=== PATIENT | male | born 1970 | race Caucasian/White ===

== ENCOUNTER 2021-05-08 00:03 | Inpatient (IN) | payer BC ==
[~2021-05-08] VITALS: Ht 180.3 cm; Wt 110.7 kg
[2021-05-08] VITALS (9 sets, daily range): BP systolic 127–172; BP diastolic 75–106
[2021-05-08 00:44] LABS: BASO # 0.1 10*3/uL (0.0-0.1); BASO % 0.7 % (0.0-1.0); EOS # 0.2 10*3/uL (0.0-0.4); EOS % 3.2 % (1.0-4.0); HEMATOCRIT 52.3 % (42.0-52.0); LYMPH # 2.2 10*3/uL (1.3-4.4); LYMPH % 30.6 % (27.0-41.0); MEAN CELL VOLUME 88.2 fl (80.0-94.0); MEAN CORPUSCULAR HGB 30.5 pg (27.0-31.0); MEAN CORPUSCULAR HGB CONC 34.6 g/dl (33.0-37.0); MEAN PLATELET VOLUME 10.9 fl (9.6-12.3); MONO # 0.8 10*3/uL (0.1-1.0); MONO % 10.9 % (3.0-9.0); NEUT # 3.9 10*3/uL (2.3-7.9); NEUT % 54.2 % (47.0-73.0); PLATELET COUNT AUTOMATED 273 10*3/uL (130-400); RED BLOOD COUNT 5.93 10*6/uL (4.50-5.90); RED CELL DISTRI WIDTH 11.9 % (0-14.5); WHITE BLOOD COUNT 7.1 10*3/uL (4.8-10.8)
[2021-05-08 01:01] LABS: ACT PARTIAL THROMBO TIME 28.2 SECONDS (20.0-32.1)
[2021-05-08 01:07] LABS: ALBUMIN 3.6 gm/dl (3.1-4.5); ALKALINE PHOSPHATASE 109 U/L (45-117); BUN 12 mg/dl (7-24); CHLORIDE 104 mmol/L (98-107); CREATININE 0.94 mg/dL (0.70-1.30); POTASSIUM 3.3 mmol/L (3.5-5.1); SGOT/AST 33 IU/L (3-35); SGPT/ALT 57 U/L (12-78); SODIUM 140 mmol/L (136-145); TOTAL PROTEIN 7.8 gm/dL (6.4-8.2)
[2021-05-08 01:08] LABS: TROPONIN I < 0.015 ng/ml (<0.045)
[2021-05-08 03:22] LABS: BASO % 0.6 % (0.0-1.0); EOS # 0.3 10*3/uL (0.0-0.4); EOS % 3.9 % (1.0-4.0); HEMATOCRIT 50.5 % (42.0-52.0); LYMPH # 2.1 10*3/uL (1.3-4.4); LYMPH % 28.6 % (27.0-41.0); MEAN CELL VOLUME 88.3 fl (80.0-94.0); MEAN CORPUSCULAR HGB 30.6 pg (27.0-31.0); MEAN CORPUSCULAR HGB CONC 34.7 g/dl (33.0-37.0); MEAN PLATELET VOLUME 10.9 fl (9.6-12.3); MONO % 13.4 % (3.0-9.0); NEUT # 3.8 10*3/uL (2.3-7.9); NEUT % 52.7 % (47.0-73.0); PLATELET COUNT AUTOMATED 266 10*3/uL (130-400); RED BLOOD COUNT 5.72 10*6/uL (4.50-5.90); WHITE BLOOD COUNT 7.2 10*3/uL (4.8-10.8)
[2021-05-08 03:34] LABS: ACT PARTIAL THROMBO TIME 28.8 SECONDS (20.0-32.1)
[2021-05-08 03:40] LABS: ALBUMIN 3.3 gm/dl (3.1-4.5); ALKALINE PHOSPHATASE 87 U/L (45-117); BUN 14 mg/dl (7-24); CHLORIDE 108 mmol/L (98-107); CHOLESTEROL 198 mg/dL (<200); CREATININE 0.87 mg/dL (0.70-1.30); LDL CHOLESTEROL 101 mg/dL (9-159); POTASSIUM 3.4 mmol/L (3.5-5.1); SGOT/AST 27 IU/L (3-35); SGPT/ALT 52 U/L (12-78); SODIUM 142 mmol/L (136-145); TOTAL PROTEIN 7.3 gm/dL (6.4-8.2); TRIGLYCERIDES 310 mg/dl (<150)
[2021-05-08 06:44] LABS: VITAMIN D, 25-HYDROXY 26.3 ng/mL (30-100)
[2021-05-08] MEDS ORDERED: AMLODIPINE BESYL5 MG PO (13:53)
[2021-05-08] MEDS ORDERED: SILDENAFIL20 M1 PO (13:54)
[2021-05-08] MEDS ORDERED: LOSARTAN-HCTZ1 EAC1 PO (13:54)
[2021-05-08] MEDS ORDERED: METOPROLOL SUCC50 M1 PO (13:54)
[2021-05-08] MEDS ORDERED: RYBELSUS7 MG PO (13:55)
[2021-05-08] MEDS ORDERED: ATORVASTATIN CA40 M1 PO (14:07)
[2021-05-08] MEDS ORDERED: ASPIRIN ADULT L81 M2 PO (14:07)
[2021-05-09] VITALS: BP 160/96; BP 163/101
[2021-05-09 04:45] VITALS: BP 158/100
== END 2021-05-09 07:58 | disposition short-term general hospital (02) | DRG 303 ==
LOC: ED 00:03 → EDHOLD 01:25 → 4E 20:40
PROVIDERS: Hospitalist; Internal Medicine; ADMIT Emergency Medicine; ATTEND Emergency Medicine
PROC: 4A02XM4 Measurement of Cardiac Total Activity, External Approach (ICD-10-PCS; principal; 2021-05-08)
PROC: 3E073KZ Introduction of Other Diagnostic Substance into Coronary Artery, Percutaneous Approach (ICD-10-PCS; 2021-05-08)
DX: I25.10 Atherosclerotic heart disease of native coronary artery without angina pectoris (principal); E87.6 Hypokalemia; D75.1 Secondary polycythemia; I10 Essential (primary) hypertension; E78.5 Hyperlipidemia, unspecified; R73.9 Hyperglycemia, unspecified; Z95.5 Presence of coronary angioplasty implant and graft; Z83.3 Family history of diabetes mellitus; Z79.82 Long term (current) use of aspirin; Z79.899 Other long term (current) drug therapy